=== PATIENT | male | born 1970 | race Hispanic/Latino ===

== ENCOUNTER 2017-03-23 12:43 | Emergency (ER) | payer OTHER ==
[2017-03-23 12:55] VITALS: BP 134/87; PULSE 81; RESP 16; TEMP 98.1; O2SAT 98; BMI 33.3
--- NOTE | 2017-03-23 13:09 | ED PDOC ---
Arrival/HPI - General Historian: Patient - General Chief Complaint: Lower Extremity Problem/Injury Time Seen by Provider: 03/23/17 13:05 - History of Present Illness Narrative History of Present Illness (Text): 03/23/17 13:06 46 y/o male, no pmh, nkda, c/o rt. foot sole pain x 1 month with no fall or trauma. Aching pain, aggravated by walking, admits long hours standing, non- radiating pain, admits that he has no arch on the foot but he stands long hour, no calf pain, no chest pain or shortness of breath, no dizziness, no other medical or psychological complaints. (Dilshad Day) Past Medical History - Provider Review Nursing Documentation Reviewed: Yes - Cardiac Hx Cardiac Disorders: Yes Hx Hypertension: Yes - Pulmonary Hx Respiratory Disorders: No - Neurological Hx Neurological Disorder: No - HEENT Hx HEENT Disorder: No - Renal Hx Renal Disorder: No - Endocrine/Metabolic Hx Endocrine Disorders: No - Hematological/Oncological Hx Blood Disorders: No - Integumentary Hx Dermatological Disorder: No - Musculoskeletal/Rheumatological Hx Musculoskeletal Disorders: No - Gastrointestinal Hx Gastrointestinal Disorders: No - Genitourinary/Gynecological Hx Genitourinary Disorders: No - Psychiatric Hx Psychophysiologic Disorder: No Hx Substance Use: No - Surgical History Other/Comment: left knee Family/Social History - Physician Review Nursing Documentation Reviewed: Yes Family/Social History: Unknown Family HX Smoking Status: Never Smoked Hx Alcohol Use: No Hx Substance Use: No Allergies/Home Meds Allergies/Adverse Reactions: Allergies No Known Allergies Allergy (Verified 03/23/17 12:55) Review of Systems - Review of Systems Constitutional: absent: Fatigue, Fevers Eyes: absent: Vision Changes ENT: absent: Hearing Changes Respiratory: absent: Cough, Sputum Cardiovascular: absent: Chest Pain Gastrointestinal: absent: Abdominal Pain, Diarrhea, Nausea, Vomiting Musculoskeletal: Arthralgias. absent: Back Pain, Neck Pain, Joint Swelling, Myalgias Skin: absent: Rash, Pruritis, Skin Lesions Neurological: absent: Headache, Dizziness Psychiatric: absent: Anxiety, Depression, Suicidal Ideation Physical Exam Vital Signs Reviewed: Yes Temperature: Afebrile Blood Pressure: Normal Pulse: Regular Respiratory Rate: Normal Appearance: Positive for: Well-Appearing, Non-Toxic, Comfortable Pain Distress: Moderate Mental Status: Positive for: Alert and Oriented X 3 - Systems Exam Head: Present: Atraumatic, Normocephalic Pupils: Present: PERRL Extroacular Muscles: Present: EOMI Conjunctiva: Present: Normal Mouth: Present: Moist Mucous Membranes Neck: Present: Normal Range of Motion Respiratory/Chest: Present: Clear to Auscultation, Good Air Exchange. No: Respiratory Distress, Accessory Muscle Use Cardiovascular: Present: Regular Rate and Rhythm, Normal S1, S2. No: Murmurs Abdomen: Present: Normal Bowel Sounds. No: Tenderness, Distention, Peritoneal Signs Upper Extremity: Present: Normal Inspection. No: Cyanosis, Edema Lower Extremity: Present: Normal Inspection, Other (Rt. foot: pt. has flat foot sole, +ttp on the calcaneal sole region, skin intact, no laceration or abrasion , no skin discoloration, FROM without limitation, sensation intact, motor 5/5, + DPPT pulses, capillary refill< 2 seconds, neurovascular intact. ). No: Edema Neurological: Present: GCS=15, CN II-XII Intact, Speech Normal Skin: Present: Warm, Dry, Normal Color. No: Rashes Psychiatric: Present: Alert, Oriented x 3, Normal Insight, Normal Concentration Vital Signs Temp Pulse Resp BP Pulse Ox 03/23/17 12:51 98.1 F 81 16 134/87 98 Medical Decision Making - RAD Interpretation Forklift Driver: Radiologist ED Course and Treatment: I was available for consultation during PA evaluation. The chart was reviewed by me, and I agree with disposition. The documented history was done by the physician securities and real estate director. The documented physical exam was done by the physician securities and real estate director. The documented procedures were done by the physician securities and real estate director. ( Bandar Jimenez) 03/23/17 13:08 -indomethacin -xray -dariel wrap applied by me with neurovascular intact. 03/23/17 13:31 -x-rays show calcaneal spur, no fracture or dislocation -Discharge home with dariel wrap, indomethacin, avoid excessive standing, elevation , ice compression, follow up with your own pmd and group home worker within 2 days, return to the ER for any new or worsening signs or symptoms. (Dilshad Day) - RAD Interpretation Radiology Orders: 03/23/17 13:05 FOOT RIGHT 3 VIEWS ROUTINE [RAD] Stat heel spurs, no fracture (Dilshad Day) - Medication Orders Current Medication Orders: Discontinued Medications Indomethacin (Indocin) 50 mg PO STAT STA Stop: 03/23/17 13:13 Last Admin: 03/23/17 13:35 Dose: 50 MG MAR Pain Assessment Document 03/23/17 13:35 RR (Rec: 03/23/17 13:35 RR [facility]) Pain Reassessment Is this a pain reassessment? Yes Sleep Is patient sleeping during reassessment? No Presence of Pain Presence of Pain Yes Location Pain Location Body Site Foot Description Description Constant - PA / [employer] / Resident Statement MD/DO has reviewed & agrees with the documentation as recorded. Disposition/Present on Arrival - Present on Arrival Any Indicators Present on Arrival: No History of DVT/PE: No History of Uncontrolled Diabetes: No Urinary Catheter: No History of Decub. Ulcer: No History Surgical Site Infection Following: None - Disposition Have Diagnosis and Disposition been Completed?: Yes Disposition Time: 13:09 Patient Plan: Discharge - Disposition Diagnosis: Plantar fasciitis, Calcaneal spur Disposition: HOME/ ROUTINE Condition: GOOD Discharge Instructions (ExitCare): Plantar Fasciitis (ED) Print Language: KINYARWANDA Additional Instructions: Discharge home with dariel wrap, indomethacin, avoid excessive standing, elevation , ice compression, follow up with your own pmd and group home worker within 2 days, return to the ER for any new or worsening signs or symptoms. Prescriptions: Indomethacin [Indocin] 50 mg PO TID PRN #30 cap PRN Reason: Other Referrals: Kala Stokes DPM [Staff Provider] - Follow up with primary [facility] at [facility] [Outside] - Follow up with primary Forms: WORK NOTE
--- NOTE | 2017-03-23 16:01 | RAD ---
PROCEDURE: Right Foot Radiographs. HISTORY: rt. foot sole pain x 1 month COMPARISON: None. FINDINGS: BONES: Normal. No fracture. JOINTS: Normal. SOFT TISSUES: Normal. OTHER FINDINGS: Heel spurs.. IMPRESSION: No fracture.
== END 2017-03-23 13:41 | disposition home or self-care (01) ==
LOC: ED 12:43
DX: M72.2 Plantar fascial fibromatosis (principal); M77.31 Calcaneal spur, right foot